=== PATIENT | female | born 1935 | race Caucasian/White ===

== ENCOUNTER → 2017-08-01 | Day surgery (SDC) | payer OTHER ==
[~2017-08-01] MED LIST: KENALOG INJ 40 MG IM ONE; MARCAINE 0.25% INJ ONE; MARCAINE 0.5% ONE; XYLOCAINE 1 % (PLAIN) ONE
--- NOTE | 2017-08-01 12:01 | DR.UPDATE ---
H&P Update History and Physical Update: History and Physical reviewed and patient examined. Changes noted: NO Yes with the following:agree with H&Pfrom Dr Colmenares. will proceed with right SI joint injection.
[2017-08-01 12:31] VITALS: BP 181/77
== END | disposition home or self-care (01) | DRG 552 ==
LOC: SURG1 11:07
PROVIDERS: ATTEND Specialist
PROC: 3E0U3BZ Introduction of Anesthetic Agent into Joints, Percutaneous Approach (ICD-10-PCS; 2017-08-01)
PROC: 3E0U33Z Introduction of Anti-inflammatory into Joints, Percutaneous Approach (ICD-10-PCS; principal; 2017-08-01 14:30)
DX: M53.3 Sacrococcygeal disorders, not elsewhere classified (principal)
CPT/HCPCS: 20610; 76000; S0020; J2001; J3301